=== PATIENT | female | born 1950 | race Caucasian/White ===

== ENCOUNTER 2021-07-19 06:06 | Emergency (ER) | payer MEDICARE, MEDICAID ==
[2021-07-19] MEDS ORDERED: Sodium Chloride 0.9% 10 ML Syringe FLUSH PRN (06:20)
[2021-07-19 07:04] LABS: CHLORIDE,CL 98 mmol/L (98-107); SODIUM,NA 140 mmol/L (136-145)
[2021-07-19 07:05] LABS: ANION GAP 18.5 mmol/L (5-15)
== END 2021-07-19 08:05 | disposition home or self-care (01) ==
LOC: VM.ED 06:06
DX: I62.9 Nontraumatic intracranial hemorrhage, unspecified (principal); R40.4 Transient alteration of awareness; E78.00 Pure hypercholesterolemia, unspecified; J44.9 Chronic obstructive pulmonary disease, unspecified; I10 Essential (primary) hypertension; E11.9 Type 2 diabetes mellitus without complications; E03.9 Hypothyroidism, unspecified
CPT/HCPCS: 36415; 70450; 80053; 82550; 83615; 84484; 85025; 85610; 85730; 93010; 99285; 99285-25